=== PATIENT | female | born 1995 | race Caucasian/White ===

== ENCOUNTER 2016-07-12 18:19 | Emergency (ER) | payer SELFPAY ==
--- NOTE | 2016-07-12 20:13 | ED CLINICAL REPORT ---
Clinical Report - Physicians/Mid Levels [facility] [address] [place] [address] 07/12/2016 18:22 Patient: ALEX MARSH Time Seen: 19:43; initial patient contact, initial documentation, patient care assumed. Arrived- By private vehicle. Historian- patient. HISTORY OF PRESENT ILLNESS Chief Complaint: VOMITING. This started about 3 days ago and is still present. No recent travel. She has had nausea. She has had vomiting (x3 episodes today). No diarrhea, black stools, bloody stools, abdominal pain or constipation. No flank pain, history of possible bad food exposure, known contact with a sick individual or change in routine. Has not recently been camping or on antibiotics. The illness is described as mild. (pt states she can eat and drink fine, but when she starts walking around too much or rides in car, she gets dizzy and nauseated, states she had a sz Tues, and she always gets headaches after her sz and she also has a headache, took friends reglan which helped). Similar symptoms previously: None. Recent medical care: Not recently seen/assessed. REVIEW OF SYSTEMS No fever, muscle aches, difficulty with urination, dark urine or chest pain. No difficulty breathing. She has had a mild, constant global headache. The patient has a history of chronic headaches. She has had mild transient dizziness described as vertiginous in quality. All systems otherwise negative, except as recorded above. PAST HISTORY See nurses notes. PROBLEMS: Seizure. --19:14 Eileen Shaffer R.N. ADDITIONAL SURGERIES: no known surgeries. History of headaches. SOCIAL HISTORY Heavy tobacco smoker. No alcohol use or drug use. No recent travel. Is a local resident. FAMILY HISTORY Negative. ADDITIONAL NOTES The nursing notes have been reviewed with agreement regarding the chief complaint, HPI, ROS, PMH and patient medications and allergies. PHYSICAL EXAM Vital Signs: 07/12/2016 19:11 BP: 121/72. HR: 81. RR: 18. O2 saturation: 100%. Temp: 98.3 F. Have been reviewed as normal and appear to be correct. Appearance: Alert. Oriented X3. No acute distress. Eyes: Pupils equal, round and reactive to light. Eyes normal inspection. ENT: Ears normal. Nose normal. Pharynx normal. Neck: Normal inspection. Neck supple. CVS: Normal heart rate and rhythm. Heart sounds normal. Pulses normal. Respiratory: No respiratory distress. Breath sounds normal. Abdomen: Soft and nontender. Bowel sounds normal. No organomegaly. No mass. Back: Normal inspection. Skin: Skin warm and dry. Normal skin color. No rash. Normal skin turgor. Extremities: Extremities exhibit normal ROM. No lower extremity edema. Neuro: Oriented X 3. No motor deficit. No sensory deficit. PROGRESS AND PROCEDURES Course of Care: tx options discussed, pt declined iv and ivf, declined headache cocktail with injections, wants oral meds only 2019. nurse went to [facility] pt and now pt is asking for sz med upon speaking with pt, pt now tells me that she has been having szs for x2 years, but never took sz med and was never officially dx with sz, request for sz med denied. Patient counseled in person regarding the patient's stable condition and diagnosis. Differential Diagnosis: Other possible considerations: substance abuse, , vertigo, gastroenteritis, viral illness, ulcer, gerd, aom, aoe. Above considerations are based on history and physical exam. Differential diagnosis was discussed with patient. Disposition: Discharged home in good and improved condition (20:13). Condition: good and stable. CLINICAL IMPRESSION Intractable vomiting with nausea. No dehydration or volume depletion. Not bilious. Episodic dizziness Episodic, poorly controlled periodic headache syndrome. INSTRUCTIONS Warnings: GENERAL WARNINGS: Return or contact your physician immediately if your condition worsens or changes unexpectedly, if not improving as expected, or if other problems arise. SPECIFICALLY, return if you develop pain in the abdomen, fever, the inability to keep fluids down, blood in vomitus, blood in diarrhea, fainting or lightheadedness. Prescription Medications: Zofran 4 mg: Take 1 orally every six hours as needed for nausea/vomiting. Dispense ten (10). No refills. Substitution is permissible. Fioricet: Take 1-2 orally every 4 hours as needed for headache. Dispense twenty (20). No refills. Substitution is permissible. Meclizine 25 mg: Take 1 tablet orally every 8 hours as needed for dizziness. Dispense thirty (30). No refills. Follow-up: Follow up with your doctor in about three days even if well. Call for an appointment. Summary of care provided to patient. Understanding of the discharge instructions verbalized by patient. (Electronically signed by Karina Paredes A.R.N.P. 07/12/2016 23:14)
--- NOTE | 2016-07-12 20:13 | ED ORDER SUMMARY ---
..... Patient: ALEX MARSH OrderSheet [facility] VisitID: [id number] [address] [place] [address] 21y, F Registration Date/Time: 07/12/2016 ORDER SHEET Weight: 45.3 kg (stated) Allergies: No Known Drug Allergy GENERAL ORDERS: POC - Urine hCG (19:42 07/12/2016 DDean R.N. per protocol) (19:43 DDean R.N.) MEDICATION ORDERS: Zofran ODT PO 4 mg (NOW) (19:53 07/12/2016 HBivens A.R.N.P.) (Ack 19:57 DDean R.N.) (20:07 DDean R.N.) Meclizine PO 50 mg (NOW) (19:53 07/12/2016 HBivens A.R.N.P.) (Ack 19:57 DDean R.N.) (20:07 DDean R.N.) IV FLUIDS: ORDER SHEET NOTES: [Electronically signed by Tanna Bergman R.N. (20:35 07/12/2016)] [Electronically signed by Karina Paredes A.R.N.P. (23:14 07/12/2016)] [Electronically locked/signed by Tanna Bergman R.N. (20:35 07/12/2016)]
--- NOTE | 2016-07-12 20:13 | ED NURSING NOTES ---
Clinical Report - Nurses [facility] [address] [place] [address] 07/12/2016 18:22 Patient: ALEX MARSH TRIAGE Triage time 19:Jul 12 2016. Acuity: LEVEL 3. Chief Complaint: NAUSEA and VOMITING. 19:11 07/12/16. --19:15 Eileen Shaffer R.N. 19:11 07/12/16. BP: 121/72. HR: 81. RR: 18. O2 saturation: 100%. Temp: 98.3 F. Pain level now 01/05. --19:15 Eileen Shaffer R.N. SEPSIS SCREEN: Sepsis Screen. Negative (no infection suspected/documented). MARK COMA SCORE: [place] Coma Scale: 15- eyes open spontaneously (4); best verbal response- oriented x 4 (5); best motor response- obeys commands (6). --19:16 Eileen Shaffer R.N. Weight: 45.3 kg stated. Height/Length: 61 inches Per Patient. BMI: 18.9. --19:11 Eileen Shaffer R.N. Medications None. --19:14 Eileen Shaffer R.N. Allergies No Known Drug Allergy. --19:14 Eileen Shaffer R.N. Medication/allergy information source: the patient. --19:15 Eileen Shaffer R.N. History Arrived by private vehicle. Historian: patient. Accompanied by friend. Onset. (Wednesday). ( States had a seizure this past wednesday. Since then she has had a right temporal headache described as sharp. Feels off balance. When she stands she gets dizzy.). She has had nausea and vomiting. 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 (phenergan). PAST MEDICAL HX: Last normal menstrual period- 6 days ago. SOCIAL HX: Heavy tobacco smoker (cigarette)- less than 1 pack per day. No alcohol use or drug use. No recent travel. No infectious disease exposure. No known contact with a sick individual. ABUSE ASSESSMENT: No report of abuse. NUTRITIONAL RISK ASSESSMENT: The nutritional risk assessment revealed no deficiencies. FUNCTIONAL ASSESSMENT: Functional assessment: no impairments noted. LEARNING NEEDS ASSESSMENT: The learning needs assessment revealed no barriers. SKIN INTEGRITY ASSESSMENT: Skin integrity risk assessment completed. No skin integrity risk identified. --19:15 Eileen Shaffer R.N. ( Pt here due to headache on right side of head. Pt has seizures several times a year, with headaches frequently associated with them--but they usually go away in several hours. This one has lasted since Wednesday, and pt has had residual dizziness with this.). --19:22 Tanna Bergman R.N. PROBLEMS: Seizure. --19:14 Eileen Shaffer R.N. ADDITIONAL SURGERIES: no known surgeries. Interventions ID band on patient. --19:15 Eileen Shaffer R.N. PHYSICAL ASSESSMENT 19:22. Ambulatory to room. Patient gowned. GENERAL / NEURO / PSYCH: Alert. Oriented X 4. Appears in pain. ( c/o dizziness--denies neck pain). RESPIRATORY: Respirations not labored. CVS: Capillary refill less than 2 seconds. GI / : The patient has had nausea. Emesis noted. Abdomen soft. SKIN: Skin is warm. --19:23 Tanna Bergman R.N. NURSING PROGRESS NOTES 19:22. Patient gowned. Head of bed elevated. Reassurance given. Patient identifiers checked. Call light placed in reach. Side rails up. Bed placed in lowest position. Patient ready for evaluation- chart flagged. --19:22 Tanna Bergman R.N. 1935. Patient ID band checked for patient name and birthdate: patient confirmed. Clean catch urine collected with return of yellow-colored clear urine; sample sent to lab for urinalysis and culture. Specimen labeled in the presence of the patient (POC neg - ERNP notified). --19:42 Tanna Bergman R.N. 20:02 07/12/2016 Zofran ODT (Ondansetron) PO Oral Disintegrating Tablets 4 mg given. Allergies verified and confirmed 5 rights. --20:07 Tanna Bergman R.N. 20:03 07/12/2016 Meclizine PO Tablets 50 mg given. Allergies verified, confirmed 5 rights and sedative warning given to the patient. --20:07 Tanna Bergman R.N. 20:20. ( ERNP in talking with pt regarding need for follow up with PCP for long standing tx and follow up). --20:32 Tanna Bergman R.N. DISPOSITION / DISCHARGE 20:30. Condition at departure: unchanged and stable. No learning barriers present. Discharge instructions provided and reviewed with licensed physical therapy assistant and the patient. Reviewed medication(s) (fiorcet, zofran, mecline). Patient and licensed physical therapy assistant verbalized understanding. Written instructions provided in [place]. The patient was discharged home and accompanied by licensed physical therapy assistant. She left the Emergency Department ambulatory and via private vehicle. --20:35 Tanna Bergman R.N. 20:30 07/12/16. BP: 118/76. HR: 82. RR: 18. O2 saturation: 100%. Temp: deferred. Pain level now: 01/05. --20:35 Tanna Bergman R.N. Locked/Released at 07/12/2016 20:35 by Tanna Bergman R.N.
--- NOTE | 2016-07-12 20:13 | ED ORDER SUMMARY ---
..... Patient: ALEX MARSH OrderSheet [facility] VisitID: [id number] [address] [place] [address] 21y, F Registration Date/Time: 07/12/2016 ORDER SHEET Weight: 45.3 kg (stated) Allergies: No Known Drug Allergy GENERAL ORDERS: POC - Urine hCG (19:42 07/12/2016 DDean R.N. per protocol) (19:43 DDean R.N.) MEDICATION ORDERS: Zofran ODT PO 4 mg (NOW) (19:53 07/12/2016 HBivens A.R.N.P.) (Ack 19:57 DDean R.N.) (20:07 DDean R.N.) Meclizine PO 50 mg (NOW) (19:53 07/12/2016 HBivens A.R.N.P.) (Ack 19:57 DDean R.N.) (20:07 DDean R.N.) IV FLUIDS: ORDER SHEET NOTES: [Electronically signed by Tanna Bergman R.N. (20:35 07/12/2016)] [Electronically signed by Karina Paredes A.R.N.P. (23:14 07/12/2016)] [Electronically locked/signed by Tanna Bergman R.N. (20:35 07/12/2016)]
--- NOTE | 2016-07-12 20:13 | ED NURSING NOTES ---
Clinical Report - Nurses [facility] [address] [place] [address] 07/12/2016 18:22 Patient: ALEX MARSH TRIAGE Triage time 19:Jul 12 2016. Acuity: LEVEL 3. Chief Complaint: NAUSEA and VOMITING. 19:11 07/12/16. --19:15 Eileen Shaffer R.N. 19:11 07/12/16. BP: 121/72. HR: 81. RR: 18. O2 saturation: 100%. Temp: 98.3 F. Pain level now 01/05. --19:15 Eileen Shaffer R.N. SEPSIS SCREEN: Sepsis Screen. Negative (no infection suspected/documented). MARK COMA SCORE: [place] Coma Scale: 15- eyes open spontaneously (4); best verbal response- oriented x 4 (5); best motor response- obeys commands (6). --19:16 Eileen Shaffer R.N. Weight: 45.3 kg stated. Height/Length: 61 inches Per Patient. BMI: 18.9. --19:11 Eileen Shaffer R.N. Medications None. --19:14 Eileen Shaffer R.N. Allergies No Known Drug Allergy. --19:14 Eileen Shaffer R.N. Medication/allergy information source: the patient. --19:15 Eileen Shaffer R.N. History Arrived by private vehicle. Historian: patient. Accompanied by friend. Onset. (Wednesday). ( States had a seizure this past wednesday. Since then she has had a right temporal headache described as sharp. Feels off balance. When she stands she gets dizzy.). She has had nausea and vomiting. 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 (phenergan). PAST MEDICAL HX: Last normal menstrual period- 6 days ago. SOCIAL HX: Heavy tobacco smoker (cigarette)- less than 1 pack per day. No alcohol use or drug use. No recent travel. No infectious disease exposure. No known contact with a sick individual. ABUSE ASSESSMENT: No report of abuse. NUTRITIONAL RISK ASSESSMENT: The nutritional risk assessment revealed no deficiencies. FUNCTIONAL ASSESSMENT: Functional assessment: no impairments noted. LEARNING NEEDS ASSESSMENT: The learning needs assessment revealed no barriers. SKIN INTEGRITY ASSESSMENT: Skin integrity risk assessment completed. No skin integrity risk identified. --19:15 Eileen Shaffer R.N. ( Pt here due to headache on right side of head. Pt has seizures several times a year, with headaches frequently associated with them--but they usually go away in several hours. This one has lasted since Wednesday, and pt has had residual dizziness with this.). --19:22 Tanna Bergman R.N. PROBLEMS: Seizure. --19:14 Eileen Shaffer R.N. ADDITIONAL SURGERIES: no known surgeries. Interventions ID band on patient. --19:15 Eileen Shaffer R.N. PHYSICAL ASSESSMENT 19:22. Ambulatory to room. Patient gowned. GENERAL / NEURO / PSYCH: Alert. Oriented X 4. Appears in pain. ( c/o dizziness--denies neck pain). RESPIRATORY: Respirations not labored. CVS: Capillary refill less than 2 seconds. GI / : The patient has had nausea. Emesis noted. Abdomen soft. SKIN: Skin is warm. --19:23 Tanna Bergman R.N. NURSING PROGRESS NOTES 19:22. Patient gowned. Head of bed elevated. Reassurance given. Patient identifiers checked. Call light placed in reach. Side rails up. Bed placed in lowest position. Patient ready for evaluation- chart flagged. --19:22 Tanna Bergman R.N. 1935. Patient ID band checked for patient name and birthdate: patient confirmed. Clean catch urine collected with return of yellow-colored clear urine; sample sent to lab for urinalysis and culture. Specimen labeled in the presence of the patient (POC neg - ERNP notified). --19:42 Tanna Bergman R.N. 20:02 07/12/2016 Zofran ODT (Ondansetron) PO Oral Disintegrating Tablets 4 mg given. Allergies verified and confirmed 5 rights. --20:07 Tanna Bergman R.N. 20:03 07/12/2016 Meclizine PO Tablets 50 mg given. Allergies verified, confirmed 5 rights and sedative warning given to the patient. --20:07 Tanna Bergman R.N. 20:20. ( ERNP in talking with pt regarding need for follow up with PCP for long standing tx and follow up). --20:32 Tanna Bergman R.N. DISPOSITION / DISCHARGE 20:30. Condition at departure: unchanged and stable. No learning barriers present. Discharge instructions provided and reviewed with editor managing director and the patient. Reviewed medication(s) (fiorcet, zofran, mecline). Patient and editor managing director verbalized understanding. Written instructions provided in [place]. The patient was discharged home and accompanied by editor managing director. She left the Emergency Department ambulatory and via private vehicle. --20:35 Tanna Bergman R.N. 20:30 07/12/16. BP: 118/76. HR: 82. RR: 18. O2 saturation: 100%. Temp: deferred. Pain level now: 01/05. --20:35 Tanna Bergman R.N. Locked/Released at 07/12/2016 20:35 by Tanna Bergman R.N.
--- NOTE | 2016-07-12 23:14 | ED DISCHARGE INSTRUCTIONS ---
Patient: ALEX MARSH General Instructions [facility] VisitID: [id number] [address] [place] [address] 21y, F Registration Date/Time: 07/12/2016 Intractable vomiting with nausea. No dehydration or volume depletion. Not bilious. Episodic dizziness Episodic, poorly controlled periodic headache syndrome. INSTRUCTIONS Warnings: GENERAL WARNINGS: Return or contact your physician immediately if your condition worsens or changes unexpectedly, if not improving as expected, or if other problems arise. SPECIFICALLY, return if you develop pain in the abdomen, fever, the inability to keep fluids down, blood in vomitus, blood in diarrhea, fainting or lightheadedness. Prescription Medications: Zofran 4 mg: Take 1 orally every six hours as needed for nausea/vomiting. Dispense ten (10). No refills. Substitution is permissible. Fioricet: Take 1-2 orally every 4 hours as needed for headache. Dispense twenty (20). No refills. Substitution is permissible. Meclizine 25 mg: Take 1 tablet orally every 8 hours as needed for dizziness. Dispense thirty (30). No refills. Follow-up: Follow up with your doctor in about three days even if well. Call for an appointment. Summary of care provided to patient. Understanding of the discharge instructions verbalized by patient. ADDITIONAL INFORMATION Vomiting [6Yr-Adult] Vomiting is a common symptom that may be due to different causes. These include gastroenteritis ("stomach flu"), food poisoning and gastritis. There are other more serious causes of vomiting which may be hard to diagnose early in the illness. Therefore, it is important to watch for the warning signs listed below. The main danger from repeated vomiting is dehydration. This is due to excess loss of water and minerals from the body. When this occurs, body fluids must be replaced. Home Care: If symptoms are severe, rest at home for the next 24 hours. You may use acetaminophen (Tylenol) or ibuprofen (Motrin, Advil) to control fever, unless another medicine was prescribed. [NOTE : If you have chronic liver or kidney disease or ever had a stomach ulcer or GI bleeding, talk with your doctor before using these medicines.] (Aspirin should never be used in anyone under 18 years of age who is ill with a fever. It may cause severe liver damage.) Avoid tobacco and alcohol use, which may worsen your symptoms. If medicines for vomiting were prescribed, take as directed. Once vomiting stops, then follow these guidelines: During The First 12-24 Hours follow the diet below: FRUIT JUICES: Apple, grape juice, clear fruit drinks, and electrolyte replacement drinks. BEVERAGES: Soft drinks without caffeine; mineral water (plain or flavored), decaffeinated tea and coffee. SOUPS: Clear broth, consomm and bouillon DESSERTS: Plain gelatin, popsicles and fruit juice bars. As you feel better, you may add 6-8 ounces of yogurt per day. During The Next 24 Hours you may add the following to the above: Hot cereal, plain toast, bread, rolls, crackers Plain noodles, rice, mashed potatoes, chicken noodle or rice soup Unsweetened canned fruit (avoid pineapple), bananas Limit caffeine and chocolate. No spices or seasonings except salt. During The Next 24 Hours Gradually resume a normal diet, as you feel better and your symptoms lessen. Follow Up with your doctor as advised if you are not improving over the next 2-3 days. Get Prompt Medical Attention if any of the following occur: Constant right-sided lower abdominal pain or increasing general abdominal pain Continued vomiting (unable to keep liquids down) for 24 hours Frequent diarrhea (more than 5 times a day); blood (red or black color) or mucus in diarrhea Reduced urine output or extreme thirst Weakness, dizziness or fainting Unusually drowsy or confused Fever of 100.4F (38C) oral or higher, not better with fever medication Yellow color of the eyes or skin Dizziness [Uncertain Cause] Dizziness is a common symptom sometimes described as "lightheadedness" or feeling like you are going to faint. If it lasts for only a few seconds and is related to changes in position (such as getting up after lying or sitting for a long time), it is usually not a sign of anything serious. Dizziness that lasts for minutes to hours, or comes on for no apparent reason, may be a sign of a more serious problem (such as dehydration, a medicine reaction, disease of the heart or brain). Today's exam did not show an exact cause for your dizzy spell . Sometimes additional tests are required before a cause can be found. Therefore, it is important to follow up with your doctor if your symptoms continue. Home Care: 1) If a dizzy spell occurs and lasts more than a few seconds, lie down until it passes. If you are lying down, then you cannot hurt yourself by falling if you do faint. 2) Do not drive or operate dangerous equipment until the dizzy spells have stopped for at least 48 hours. 3) If dizzy spells occur with sudden standing, this may be a sign of mild dehydration. Drink extra fluids over the next few days. 4) If you recently started a new medicine or if you had the dose of a current medicine increased (especially blood pressure medicine), talk with the prescribing doctor about your symptoms. Dose adjustments may be needed. Follow Up with your doctor for further evaluation within the next seven days, if your symptoms continue. Get Prompt Medical Attention if any of the following occur: -- Worsening of your symptoms -- Fainting, headache or seizure -- Repeated vomiting -- Feeling like you or the room is spinning -- Chest, arm, neck, back or jaw pain -- Palpitations (the sense that your heart is fluttering or beating fast or hard) -- Shortness of breath -- Blood in vomit or stool (black or red color) -- Weakness of an arm or leg or one side of the face -- Difficulty with speech or vision Benign Positional Vertigo The inner ear is located behind the middle ear. It is a part of the balance center of the body. It contains small calcium particles within fluid filled canals (semi-circular canals). These particles can move out of position as a result of aging, head trauma or disease of the inner ear. Once that happens, movement of the head into certain positions may cause the particles to stimulate the inner ear and create the feeling of vertigo. Vertigo is a false feeling of motion (as if you or the room is spinning). A vertigo attack may cause sudden nausea, vomiting and heavy sweating. Severe vertigo causes a loss of balance and may result in falling. During an attack of vertigo, head movement and body position changes will worsen symptoms. An episode of vertigo may last seconds, minutes or hours. Once you are over the first episode of vertigo, it may never return. Sometimes symptoms recur off and on over several weeks or longer. Home Care: If symptoms are severe, rest quietly in bed. Change positions slowly. There is usually one position that will feel best, such as lying on one side or lying on your back with your head slightly raised on pillows. Do not drive or work with dangerous machinery for one week after symptoms disappear, in case of a sudden return of symptoms. Take medicine as prescribed to relieve your symptoms. Unless another medicine was prescribed for nausea, vomiting and vertigo, you may use [id number] motion sickness pills, such as meclizine (Bonine, Bonamine, Antivert) or dimenhydrinate (Dramamine). Follow Up with your doctor or as directed by our staff. Report any persistent ringing in the ear or hearing loss to your doctor. [NOTE: If you had a CT or MRI scan, it will be reviewed by a specialist. You will be notified of any new findings that may affect your care.] Get Prompt Medical Attention if any of the following occur: Worsening of vertigo not controlled by the medicine prescribed Repeated vomiting not controlled by the medicine prescribed Increased weakness or fainting Severe headache or unusual drowsiness or confusion Weakness of an arm or leg or one side of the face Difficulty with speech or vision Seizure Headache [Unspecified] The cause of your headache today is not clear, but it does not appear to be the sign of any serious illness. Under stress, some people tense the muscles of their shoulder, neck and scalp without knowing it. If this condition lasts long enough, a TENSION HEADACHE can occur. A MIGRAINE HEADACHE is caused by changes in blood flow to the brain. A migraine attack may be triggered by emotional stress, hormone changes during the menstrual cycle, oral contraceptives, alcohol use, certain foods containing tyramine, eye strain, weather changes, missing meals, lack of sleep or oversleeping. Other causes of headache include a viral illness with high fever, head injury with concussion, sinus, ear or throat infection, dental pain and TMJ (jaw joint) pain. More serious but less common causes of headache include stroke, brain hemorrhage, brain tumor, meningitis and encephalitis. Home Care: If you were given pain medicine for this headache, do not drive yourself home. Arrange for a ride, instead. When you get home, try to sleep. You should feel much better when you wake up. Apply heat to the back of your neck to relieve neck muscle spasm. Migraine headaches may respond best to an ice pack on the forehead or at the base of the skull. If you are having nausea or vomiting, follow a light diet until your headache is relieved. If you have a migraine type headache, use sunglasses when in the daylight or around bright indoor lighting until symptoms improve. Bright glaring light can worsen this kind of headache. Follow Up with your doctor if the headache is not better within the next 24 hours. If you have frequent headaches you should discuss a treatment plan with your primary care doctor. By being aware of the earliest signs of headache, and starting treatment right away, you may be able to stop the pain yourself. Get Prompt Medical Attention if any of the following occur: Worsening of your head pain or no improvement within 24 hours Repeated vomiting (unable to keep liquids down) Fever of 100.4F (38C) or higher, or as directed by your healthcare provider Stiff neck Extreme drowsiness, confusion or fainting Dizziness, vertigo (dizziness with spinning sensation) Weakness of an arm or leg or one side of the face Difficulty with speech or vision Ondansetron Oral disintegrating tablet What is this medicine? ONDANSETRON (on CANDIDO se kenny) is used to treat nausea and vomiting caused by chemotherapy. It is also used to prevent or treat nausea and vomiting after surgery. How should I use this medicine? These tablets are made to dissolve in the mouth. Do not try to push the tablet through the foil backing. With dry hands, peel away the foil backing and gently remove the tablet. Place the tablet in the mouth and allow it to dissolve, then swallow. While you may take these tablets with water, it is not necessary to do so. Talk to your sample card maker regarding the use of this medicine in children. Special care may be needed. What side effects may I notice from receiving this medicine? Side effects that you should report to your doctor or health senior resident care director as soon as possible: allergic reactions like skin rash, itching or hives, swelling of the face, lips, or tongue breathing problems dizziness fast or irregular heartbeat feeling faint or lightheaded, falls fever and chills swelling of the hands and feet tightness in the chest Side effects that usually do not require medical attention (report to your doctor or health senior resident care director if they continue or are bothersome): constipation or diarrhea headache What may interact with this medicine? Do not take this medicine with any of the following medications: -apomorphine -cisapride -dofetilide -dronedarone -pimozide -thioridazine -ziprasidone This medicine may also interact with the following medications: -carbamazepine -phenytoin -rifampicin -tramadol -other medicines that prolong the QT interval (cause an abnormal heart rhythm) What if I miss a dose? If you miss a dose, take it as soon as you can. If it is almost time for your next dose, take only that dose. Do not take double or extra doses. Where should I keep my medicine? Keep out of the reach of children. Store between 2 and 30 degrees C (36 and 86 degrees F). Throw away any unused medicine after the expiration date. What should I tell my health care provider before I take this medicine? They need to know if you have any of these conditions: heart disease history of irregular heartbeat liver disease low levels of magnesium or potassium in the blood an unusual or allergic reaction to ondansetron, granisetron, other medicines, foods, dyes, or preservatives or trying to get breast-feeding What should I watch for while using this medicine? Check with your doctor or health senior resident care director as soon as you can if you have any sign of an allergic reaction. Butalbital, Acetaminophen, Caffeine Oral tablet What is this medicine? ACETAMINOPHEN; BUTALBITAL; CAFFEINE (a set a TO leatha fen; byoo TEE bi tee; KAF een) is a pain reliever. It is used to treat tension headaches. How should I use this medicine? Take this medicine by mouth with a full glass of water. Follow the directions on the prescription label. If the medicine upsets your stomach, take the medicine with food or milk. Do not take more than you are told to take. Talk to your sample card maker regarding the use of this medicine in children. Special care may be needed. What side effects may I notice from receiving this medicine? Side effects that you should report to your doctor or health senior resident care director as soon as possible: allergic reactions like skin rash, itching or hives, swelling of the face, lips, or tongue breathing problems confusion feeling faint or lightheaded, falls redness, blistering, peeling or loosening of the skin, including inside the mouth seizure stomach pain yellowing of the eyes or skin Side effects that usually do not require medical attention (report to your doctor or health senior resident care director if they continue or are bothersome): constipation nausea, vomiting What may interact with this medicine? alcohol or medicines that contain alcohol antidepressants, especially MAOIs like isocarboxazid, phenelzine, tranylcypromine, and selegiline antihistamines benzodiazepines carbamazepine isoniazid medicines for pain like pentazocine, buprenorphine, butorphanol, nalbuphine, tramadol, and propoxyphene muscle relaxants naltrexone phenobarbital, phenytoin, and fosphenytoin phenothiazines like perphenazine, thioridazine, chlorpromazine, mesoridazine, fluphenazine, prochlorperazine, promazine, and trifluoperazine voriconazole What if I miss a dose? If you miss a dose, take it as soon as you can. If it is almost time for your next dose, take only that dose. Do not take double or extra doses. Where should I keep my medicine? Keep out of the reach of children. This medicine can be abused. Keep your medicine in a safe place to protect it from theft. Do not share this medicine with anyone. Selling or giving away this medicine is dangerous and against the law. Store at room temperature between 15 and 30 degrees C (59 and 86 degrees F). Keep container tightly closed. Protect from light. Throw away any unused medicine after the expiration date. What should I tell my health care provider before I take this medicine? They need to know if you have any of these conditions: drink more than 3 alcohol-containing drinks per day drug abuse or addiction heart or circulation problems kidney disease or problems going to the bathroom liver disease lung disease, asthma, or breathing problems porphyria an unusual or allergic reaction to acetaminophen, butalbital or other barbiturates, caffeine, other medicines, foods, dyes, or preservatives or trying to get breast-feeding What should I watch for while using this medicine? Tell your doctor or health senior resident care director if your pain does not go away, if it gets worse, or if you have new or a different type of pain. You may develop tolerance to the medicine. Tolerance means that you will need a higher dose of the medicine for pain relief. Tolerance is normal and is expected if you take the medicine for a long time. Do not suddenly stop taking your medicine because you may develop a severe reaction. Your body becomes used to the medicine. This does NOT mean you are addicted. Addiction is a behavior related to getting and using a drug for a non-medical reason. If you have pain, you have a medical reason to take pain medicine. Your doctor will tell you how much medicine to take. If your doctor wants you to stop the medicine, the dose will be slowly lowered over time to avoid any side effects. You may get drowsy or dizzy when you first start taking the medicine or change doses. Do not drive, use machinery, or do anything that may be dangerous until you know how the medicine affects you. Stand or sit up slowly. Do not take other medicines that contain acetaminophen with this medicine. Always read labels carefully. If you have questions, ask your doctor or pharmacist. If you take too much acetaminophen get medical help right away. Too much acetaminophen can be very dangerous and cause liver damage. Even if you do not have symptoms, it is important to get help right away. Meclizine Hydrochloride Oral tablet What is this medicine? MECLIZINE (ELIO tovar) is an antihistamine. It is used to prevent nausea, vomiting, or dizziness caused by motion sickness. It is also used to prevent and treat vertigo (extreme dizziness or a feeling that you or your surroundings are tilting or spinning around). How should I use this medicine? Take this medicine by mouth with a glass of water. Follow the directions on the prescription label. If you are using this medicine to prevent motion sickness, take the dose at least 1 hour before travel. If it upsets your stomach, take it with food or milk. Take your doses at regular intervals. Do not take your medicine more often than directed. Talk to your sample card maker regarding the use of this medicine in children. Special care may be needed. What side effects may I notice from receiving this medicine? Side effects that you should report to your doctor or health senior resident care director as soon as possible: fainting spells fast or irregular heartbeat Side effects that usually do not require medical attention (report to your doctor or health senior resident care director if they continue or are bothersome): constipation difficulty passing urine difficulty sleeping headache stomach upset What may interact with this medicine? barbiturate medicines for inducing sleep or treating seizures digoxin medicines for anxiety or sleeping problems, like alprazolam, diazepam or temazepam medicines for hay fever and other allergies medicines for mental depression medicines for movement abnormalities as in Parkinson's disease, or for stomach problems medicines for pain medicines that relax muscles What if I miss a dose? If you miss a dose, take it as soon as you can. If it is almost time for your next dose, take only that dose. Do not take double or extra doses. Where should I keep my medicine? Keep out of the reach of children. Store at room temperature between 15 and 30 degrees C (59 and 86 degrees F). Keep container tightly closed. Throw away any unused medicine after the expiration date. What should I tell my health care provider before I take this medicine? They need to know if you have any of these conditions: asthma glaucoma prostate trouble stomach problems urinary problems an unusual or allergic reaction to meclizine, other medicines, foods, dyes, or preservatives or trying to get breast-feeding What should I watch for while using this medicine? If you are taking this medicine on a regular schedule, visit your doctor or health senior resident care director for regular checks on your progress. You may get dizzy, drowsy or have blurred vision. Do not drive, use machinery, or do anything that needs mental alertness until you know how this medicine affects you. Do not stand or sit up quickly, especially if you are an older patient. This reduces the risk of dizzy or fainting spells. Alcohol can increase possible dizziness. Avoid alcoholic drinks. Your mouth may get dry. Chewing sugarless gum or sucking hard candy, and drinking plenty of water may help. Contact your doctor if the problem does not go away or is severe. This medicine may cause dry eyes and blurred vision. If you wear contact lenses you may feel some discomfort. Lubricating drops may help. See your eye doctor if the problem does not go away or is severe. You have been given the following additional information: Vomiting (6Y-Adult) Dizziness, Unk Cause Benign Positional Vertigo Headache, Unspecified Ondansetron Oral disintegrating tablet Butalbital, Acetaminophen, Caffeine Oral tablet Meclizine Hydrochloride Oral tablet (Electronically signed by Karina Paredes A.R.N.P. 07/12/2016 23:14)
--- NOTE | 2016-07-12 23:14 | ED MAR SUMMARY ---
..... Medication Administration Record [facility] [address] [place] [address] Patient: ALEX MARSH Visit ID: [id number] 21y, F Weight: 45.3 kg Height/Length: 61 in BMI: 18.9 ALLERGIES: No Known Drug Allergy Given 20:02 07/12/2016 Tanna Bergman REliceoN. Medication Administered: ZOFRAN ODT [PO] (ONDANSETRON), Dose: 4 mg Oral Disintegrating Tablets PO. Medication Ordered: Zofran ODT PO 4 mg (NOW). Given 20:03 07/12/2016 Tanna Bergman, R.N. Medication Administered: MECLIZINE [PO], Dose: 50 mg Tablets PO. Medication Ordered: Meclizine PO 50 mg (NOW).
--- NOTE | 2016-07-12 23:14 | ED MED RECONCILIATION SUMMARY ---
Patient: ALEX MARSH Medication Reconciliation Report [facility] VisitID: [id number] [address] [place] [address] 21y, F Registration Date/Time: 07/12/2016 Weight: 45.3 kg Height/Length: 61 in. BMI: 18.9 ALLERGIES: No Known Drug Allergy The patient's Home Medications are listed below: NONE. The source(s) of the original Home Medication information: patient The following Medications were given to the patient in the Emergency Department: Zofran ODT [PO] PO 4 mg, administered: 07/12/2016 8:02:00 PM Meclizine [PO] PO 50 mg, administered: 07/12/2016 8:03:00 PM The following Medications were prescribed to the patient: Zofran 4 mg: Take 1 orally every six hours as needed for nausea/vomiting. Dispense ten (10). No refills. Substitution is permissible. -- Karina Paredes, A.R.N.P. Fioricet: Take 1-2 orally every 4 hours as needed for headache. Dispense twenty (20). No refills. Substitution is permissible. -- Karina Paredes, A.R.N.P. Meclizine 25 mg: Take 1 tablet orally every 8 hours as needed for dizziness. Dispense thirty (30). No refills. -- Karina Paredes A.R.N.P.
--- NOTE | 2016-07-12 23:14 | ED MAR SUMMARY ---
..... Medication Administration Record [facility] [address] [place] [address] Patient: ALEX MARSH Visit ID: [id number] 21y, F Weight: 45.3 kg Height/Length: 61 in BMI: 18.9 ALLERGIES: No Known Drug Allergy Given 20:02 07/12/2016 Tanna Bergman REliceoN. Medication Administered: ZOFRAN ODT [PO] (ONDANSETRON), Dose: 4 mg Oral Disintegrating Tablets PO. Medication Ordered: Zofran ODT PO 4 mg (NOW). Given 20:03 07/12/2016 Tanna Bergman, R.N. Medication Administered: MECLIZINE [PO], Dose: 50 mg Tablets PO. Medication Ordered: Meclizine PO 50 mg (NOW).
--- NOTE | 2016-07-12 23:14 | ED MED RECONCILIATION SUMMARY ---
Patient: ALEX MARSH Medication Reconciliation Report [facility] VisitID: [id number] [address] [place] [address] 21y, F Registration Date/Time: 07/12/2016 Weight: 45.3 kg Height/Length: 61 in. BMI: 18.9 ALLERGIES: No Known Drug Allergy The patient's Home Medications are listed below: NONE. The source(s) of the original Home Medication information: patient The following Medications were given to the patient in the Emergency Department: Zofran ODT [PO] PO 4 mg, administered: 07/12/2016 8:02:00 PM Meclizine [PO] PO 50 mg, administered: 07/12/2016 8:03:00 PM The following Medications were prescribed to the patient: Zofran 4 mg: Take 1 orally every six hours as needed for nausea/vomiting. Dispense ten (10). No refills. Substitution is permissible. -- Karina Paredes, A.R.N.P. Fioricet: Take 1-2 orally every 4 hours as needed for headache. Dispense twenty (20). No refills. Substitution is permissible. -- Karina Paredes, A.R.N.P. Meclizine 25 mg: Take 1 tablet orally every 8 hours as needed for dizziness. Dispense thirty (30). No refills. -- Karina Paredes A.R.N.P.
== END 2016-07-12 20:30 | disposition home or self-care (01) ==
LOC: ED SRH 18:19
DX: R11.2 Nausea with vomiting, unspecified (principal); R42 Dizziness and giddiness; G44.89 Other headache syndrome; Z72.0 Tobacco use